=== PATIENT | male | born 1995 | race Caucasian/White ===

== ENCOUNTER 2024-01-02 11:04 | Emergency (ER) | payer SELFPAY ==
--- NOTE | ~2024-01-02 | XR_ITS ---
EXAMINATION: XR CHEST 2 VIEW CLINICAL INFORMATION: Chest pain, dyspnea COMPARISON: None TECHNIQUE: PA and lateral views of the chest obtained. FINDINGS: The lungs are clear. There are no pleural effusions. The cardiomediastinal silhouette is normal. XR/XR chest 2V IMPRESSION: No acute cardiopulmonary disease.
[2024-01-02 11:06] VITALS: BP 134/86; PULSE 128; RESP 22; TEMP 36.9; O2SAT 93; BMI 41.6
--- NOTE | 2024-01-02 11:09 | ED_ITS ---
HPI - General Adult General Chief complaint: Dyspnea Stated complaint: Difff breathing Time Seen by Provider: 01/02/24 11:28 Source: patient Mode of arrival: ambulatory Limitations: no limitations History of Present Illness HPI narrative: This is a 28-year-old man who presents for evaluation. Patient states that his co-worker who was sick with similar symptoms 2 days ago. Patient states that he has been feeling sick for the last 2 days. He reports chills, myalgias and sweats. He states no objective fevers. He reports cough. He reports associated headache, sore throat and difficulty breathing. He states no chest pain. He states no back pain. He states no abdominal pain, nausea or vomiting. He states no changes to bowel habits or urinary symptoms. He states that he is nonsmoker cigarettes or marijuana. Patient states that he does drink alcohol on a weekly basis. He reports that he had a DUI about a year ago has been slowly cutting back. He states mostly drinking beer. He states no history of alcohol withdrawal or DTs. He states recreational or illicit drug use. Related Data Previous Rx's ?Medication ?Instructions ?Recorded acetaminophen 325 mg capsule 650 mg (2 x 325 mg) PO Q6H PRN 01/02/24 (Tylenol) fever or pain #30 caps ibuprofen 600 mg tablet 600 mg PO Q6H PRN fever or pain 01/02/24 #20 tabs Allergies Allergy/AdvReac Type Severity Reaction Status Date / Time No Known Allergies Allergy Verified 01/02/24 11:11 Review of Systems 2 Review of Systems: ROS as per [facility] Social History Social History Advance Directives: No Advance Directives Information Provided: No Do you have a plan to hurt others: No Plan Physical Exam ED Vital Signs: Vital Signs - 24 hr 01/02/24 11:06 01/02/24 11:36 01/02/24 12:06 Temperature 98.4 F 100.3 F Pulse Rate 128 H 115 H 110 H Respiratory Rate 22 H 22 H 24 H Blood Pressure 134/86 137/79 Pulse Oximetry 93 92 Oxygen Delivery Method Room Air Room Air BMI result Body Mass Index 41.6 Gen: NAD, AOx3 HEENT: NCAT, EOMI, normal conjunctiva, uvula midline without edema, mild posterior oropharynx erythema without exudates CV: Tachycardic rate, regular rhythm Pulm: CTAB, no increased work of breathing GI: Soft, NTND, no rebound, guarding or rigidity Neuro: Grossly non focal Course Course Course Narrative: This is a rapid medical exam performed by Catalino Gross NP: Additional HPI, ROS, PE not included below will be deferred to primary provider. Patient is a 28-year-old male denies any pmhx presenting with 2 days of worsening dyspnea, chest tightness, cough yesterday, sore throat, body aches. PE: lungs CTA, patient diaphoretic, tachycardic and O2 92-93% on room air Plan: strep and viral swabs, labs, cxr Medications Administered Discontinued Medications Generic Name Dose Route Start Last Admin Trade Name Freq PRN Reason Stop Dose Admin Acetaminophen 650 mg 01/02/24 11:42 01/02/24 12:05 Acetaminophen 325 Mg Tablet PO 01/02/24 11:43 650 mg ONCE ONE Administration Albuterol Sulfate 2.5 mg/ 0 mg 01/02/24 12:02 01/02/24 12:06 Albuterol/Ipratropium 3 ml INHALE 01/02/24 12:03 1 dose ONCE ONE Administration Medical Decision Making Medical Decision Making [facility] Narrative: Differential diagnosis includes, but is not limited to upper respiratory tract infection, pharyngitis, pneumonia. Patient is afebrile and hemodynamically stable on room air albeit he is tachycardic and has a recorded temperature of a 100.3? F. I suspect his tachycardia secondary to rising body temperature and beta agonist. Patient is provided nebulized beta agonist and Tylenol therapy prior to my evaluation of the patient. Exam is benign and reassuring. I reviewed and interpreted labs, which are noncontributory. Of note, AST and ALT are mildly elevated. Patient endorses drinking alcohol a few times weekly. He reports prior history of heavier drinking. I suspect patient's alcohol use contributes to see these findings. I provided patient with alcohol cessation counseling indicates the importance of discontinuing alcohol use and also urged the patient to follow up with a primary care doctor/establish care with a primary care doctor and have provided patient with a referral to one. I reviewed and interpreted EKG, which is unremarkable for any acute findings. Chest x-ray is unremarkable for any acute findings. Patient has negative for COVID-19, influenza and RSV. On re-examination, patient is well-appearing and in no acute distress. ?Patient states symptoms have significantly improved. I suspect patient's symptoms are secondary to viral upper respiratory tract infection. ?There is no indication for further emergent evaluation in this otherwise well-appearing patient as above. ?Patient is provided written and verbal instructions, educational materials, prescription for ibuprofen and Tylenol, recommendations for outpatient follow-up, strict return precautions and teach back is performed. ?Patient states understanding and agreement with plan of care. ?Patient is discharged home in stable and improved condition. Admission/Observation Consideration of admission/observation: Escalation of care including admission/observation considered Lab Data MDM Lab Attestation statement: I reviewed the patient's lab results. 01/02/24 11:45 01/02/24 11:45 Labs: Lab Results 01/02/24 01/02/24 Range/Units 11:19 11:45 WBC 8.5 (4.8-10.8) X10*3/uL RBC 5.48 (4.60-5.80) X10*6/uL Hgb 16.4 (14.0-18.0) g/dl Hct 45.8 (42.0-52.0) % MCV 83.6 (80.0-98.0) fL MCH 29.9 (27.0-33.0) pg MCHC 35.8 (31.0-36.0) g/dl RDW 12.8 (11.0-16.0) % Plt Count 187 (160-400) X10*3/uL MPV 10.5 (9.4-12.4) fL Immature Gran % (Auto) 0.4 (0.0-0.4) % Neut % (Auto) 80.0 H (45-73) % Lymph % (Auto) 9.1 L (20-40) % [place] % (Auto) 8.5 (2-11) % Eos % (Auto) 1.2 (0-4) % Baso % (Auto) 0.8 (0-2) % Lymph # (Auto) 0.8 L (1.2-4.9) X10*3/uL [place] # (Auto) 0.7 (0.1-1.2) X10*3/uL Eos # (Auto) 0.1 (0.0-0.4) X10*3/uL Baso # (Auto) 0.1 (0.0-0.2) X10*3/uL Abs Immat Gran (auto) 0.03 (0.00-0.03) X10*3/uL Absolute Neuts (auto) 6.8 (2.0-8.3) x10*3/uL Absolute Nucleated RBC 0.000 (0.0-0.012) X10*3/uL Nucleated RBC % (auto) 0.0 (0.0-0.2) /100WBC PT 13.2 (11.1-13.3) SEC INR 1.1 (0.9-1.1) Sodium 135 (135-145) mmol/L Potassium 4.3 (3.3-5.1) mmol/L Chloride 102 (96-108) mmol/L Carbon Dioxide 23 (22-29) mmol/L Anion Gap 14 (12-20) BUN 9 (9-16) mg/dL Creatinine 0.74 (0.5-1.4) mg/dL Estim Creat Clear Calc 187.2 Estimated GFR > 60 Random Glucose 103 (60-115) mg/dL Calcium 9.3 (8.4-10.2) mg/dL Total Bilirubin 0.8 (0.0-1.0) mg/dL AST 54 H (5-37) U/L ALT 90 H (0-40) U/L Alkaline Phosphatase 61 (39-117) U/L Troponin I High Sens 3.8 (<3.5-35.0) ng/L Total Protein 7.7 (6.5-8.0) g/dL Albumin 4.2 (3.5-5.0) g/dL Influenza Type A (PCR) NEGATIVE (Negative) Influenza Type B (PCR) NEGATIVE (Negative) RSV RNA Qual (PCR) NEGATIVE (Negative) SARS-CoV-2 RNA (RT-PCR) NEGATIVE (Negative) S. pyogenes GrpA KONG Negative (Negative) Independent Interpretation I performed an independent interpretation of an: EKG and Plain X-Ray Interpretation: EKG demonstrates sinus tachycardia 113 BPM, FL 112, QRS 74, QTC 408, no STEMI (compared to previous EKG February 21, 2020 there are no diagnostic ischemic changes) Chest x-ray does not demonstrate any focal infiltrate, consolidation or pneumothorax Radiology Impression Discussion of test interpretation with radiology: I have reviewed the radiologist's reading. Radiologist Impression: XR/XR chest 2V IMPRESSION: No acute cardiopulmonary disease. Dictated By: Jaguar Bowden MD Signed By: <Electronically signed by Jaguar Bowden MD in OV> 01/02/24 3390 Discharge Plan Discharge Clinical Impression: Upper respiratory infection, acute Patient Disposition: Home, Self-Care Instructions: Upper Respiratory Infection (ED) Additional Instructions: You were seen and evaluated in the emergency room. Your blood work was normal. Your chest x-ray was normal and did not show evidence of pneumonia. You tested negative for COVID-19, influenza and RSV. Please continue to monitor for fever at home. You are given a prescription for ibuprofen and Tylenol. Please take as directed. Please be sure to always take ibuprofen with food and water each time. Please follow-up with a primary care doctor in the next 1-2 weeks. You are given a referral to establish care with one. Please return to the emergency room if you develop any worsening symptoms including, but not limited to chest pain or difficulty breathing. ? Prescriptions: New ibuprofen 600 mg tablet 600 mg PO Q6H PRN (Reason: fever or pain) Qty: 20 0RF acetaminophen [Tylenol] 325 mg capsule 650 mg PO Q6H PRN (Reason: fever or pain) Qty: 30 0RF Referrals: [facility] [Provider Group] Stand Alone Forms: Work/School Release Print Language: Latvian
--- NOTE | 2024-01-02 11:11 | ECG_ITS ---
Test Reason : diff breathing Blood Pressure : / mmHG Vent. Rate : 113 BPM Atrial Rate : 113 BPM P-R Int : 112 ms QRS Dur : 074 ms QT Int : 298 ms P-R-T Axes : 053 032 026 degrees QTc Int : 408 ms Sinus tachycardia Otherwise normal ECG When compared with ECG of 21-FEB-2020 23:47, No significant change was found Referred By: Nichole Gross Electronically Signed By:JANEEN TRINH
[2024-01-02 11:36] VITALS: BP 137/79; PULSE 115; RESP 22; TEMP 37.9; O2SAT 92
[2024-01-02 11:50] LABS: MANUAL DIFF FLAG NO
[2024-01-02 11:54] LABS: IDNOW Serial# 08D9AD1C; Strep A Nucleic Acid Negative (Negative)
[2024-01-02 11:54] LABS: Basophils Absolute Auto 0.1 X10*3/uL (0.0-0.2); Basophils Percent Auto 0.8 % (0-2); Eosinophils Absolute Auto 0.1 X10*3/uL (0.0-0.4); Eosinophils Percent Auto 1.2 % (0-4); Hematocrit 45.8 % (42.0-52.0); Hemoglobin 16.4 g/dl (14.0-18.0); Imm Gran Abs Auto 0.03 X10*3/uL (0.00-0.03); Imm Gran Pct Auto 0.4 % (0.0-0.4); Lymphocytes Absolute Auto 0.8 X10*3/uL (1.2-4.9); Lymphocytes Percent Auto 9.1 % (20-40); Mean Corpuscular HGB Conc 35.8 g/dl (31.0-36.0); Mean Corpuscular Hemoglobin 29.9 pg (27.0-33.0); Mean Corpuscular Volume 83.6 fL (80.0-98.0); Mean Platelet Volume 10.5 fL (9.4-12.4); Monocytes Absolute Auto 0.7 X10*3/uL (0.1-1.2); Monocytes Percent Auto 8.5 % (2-11); Neutrophils Absolute Auto 6.8 x10*3/uL (2.0-8.3); Platelet Count 187 X10*3/uL (160-400); Red Blood Count 5.48 X10*6/uL (4.60-5.80); Red Cell Distribution Width 12.8 % (11.0-16.0); White Blood Count 8.5 X10*3/uL (4.8-10.8)
[2024-01-02 12:02] LABS: INTERNATIONAL NORM RATIO 1.1 (0.9-1.1); Prothrombin Time 13.2 SEC (11.1-13.3)
[2024-01-02] MEDS: Acetaminophen 325 MG TABLET 650 MG PO (12:05)
[2024-01-02 12:06] VITALS: PULSE 110; RESP 24; O2SAT 97
[2024-01-02] MEDS: Albuterol Sulfate 2.5 MG, Albuterol/Iprat 2.5/0.5MG 3 ML 3 ML INHALE (12:06)
[2024-01-02 12:07] LABS: Influenza A PCR NEGATIVE (Negative); Influenza B PCR NEGATIVE (Negative); Resp Syncy Virus RNA Qual PCR NEGATIVE (Negative); SARS COV2 PCR INHOUSE NEGATIVE (Negative)
[2024-01-02 12:15] LABS: Alanine Aminotransferase 90 U/L (0-40); Albumin Level 4.2 g/dL (3.5-5.0); Alkaline Phosphatase 61 U/L (39-117); Anion Gap 14 (12-20); Aspartate Amino Transferase 54 U/L (5-37); Bilirubin Total 0.8 mg/dL (0.0-1.0); Blood Urea Nitrogen 9 mg/dL (9-16); Calcium 9.3 mg/dL (8.4-10.2); Carbon Dioxide 23 mmol/L (22-29); Chloride 102 mmol/L (96-108); Creatinine Clr Calc Pharmacy 187.2; Estimated Glomerular Filt Rate > 60; Glucose Random 103 mg/dL (60-115); Potassium 4.3 mmol/L (3.3-5.1); Sodium 135 mmol/L (135-145); Total Protein 7.7 g/dL (6.5-8.0)
[2024-01-02 12:21] LABS: Troponin-I High Sensitivity 3.8 ng/L (<3.5-35.0)
[2024-01-02 13:17] VITALS: BP 137/79; PULSE 94; RESP 18; TEMP 36.8; O2SAT 97
== END 2024-01-02 13:19 | disposition home or self-care (01) ==
PROVIDERS: Registered Nurse Emergency; Emergency Provider Emergency Medicine
DX: J06.9 Acute upper respiratory infection, unspecified (principal); M79.10 Myalgia, unspecified site; R68.83 Chills (without fever); Z03.818 Encounter for observation for suspected exposure to other biological agents ruled out; R51.9 Headache, unspecified; R05.9 Cough, unspecified; J02.9 Acute pharyngitis, unspecified
CPT/HCPCS: 0241U; 36415; 71046; 80053; 84484; 85025; 85610; 87651; 93005; 94640; 99284; 99285

== ENCOUNTER → 2024-01-02 11:11 | Outpatient (BNV) | payer SELFPAY | PROVIDERS: Emergency Provider Emergency Medicine; Visit Provider Internal Medicine | DX: R06.00 Dyspnea, unspecified (principal); R00.0 Tachycardia, unspecified | CPT/HCPCS: 93010 ==

== ENCOUNTER 2024-02-23 07:47 | Inpatient (IN) | payer SELFPAY ==
[2024-02-23] VITALS (9 sets, daily range): BP systolic 134–163; BP diastolic 81–96; PULSE 78–90; RESP 13–20; TEMP 36.6–37.1; O2SAT 93–98; BMI 39.9
--- NOTE | ~2024-02-23 | CT_ITS ---
EXAMINATION: CT ABDOMEN AND PELVIS WITH CONTRAST CLINICAL INFORMATION: Abdominal pain with nausea and vomiting. Elevated lipase COMPARISON: None available. TECHNIQUE: Multidetector volumetric images were obtained from the superior aspect of the liver through the pubic symphysis following administration 85 mL of Omnipaque 350 intravenous contrast. Sagittal and coronal reformatted images were obtained on the technologist's workstation. Oral contrast: No This CT examination was performed using dose optimization techniques as appropriate, variously including the following: *Automated exposure control *Adjustment of mA and/or kV according to patient size (this includes techniques or standardized protocols for targeted exams where dose is matched to indication/reason for exam; i.e. extremities or head) *Use of iterative reconstruction technique DLP: 987 mGy-cm FINDINGS: LUNG BASES: The visualized lung bases are unremarkable. LIVER, GALLBLADDER, AND BILIARY TREE: Liver is decreased in density consistent with hepatic steatosis. The gallbladder is unremarkable with no evidence of radiopaque gallstones, gallbladder wall thickening, or obvious pericholecystic inflammatory changes. PANCREAS: Minimal edema and inflammatory stranding seen around the tail of the pancreas consistent with acute pancreatitis SPLEEN: Unremarkable. ADRENAL GLANDS: Unremarkable. KIDNEYS AND URETERS: The kidneys are normal in size, shape, and attenuation. No hydronephrosis, hydroureter, or calculi seen. No perinephric stranding. BLADDER: Unremarkable. GASTROINTESTINAL TRACT: The small and large bowel are unremarkable. The appendix is unremarkable. ABDOMINAL WALL: No significant hernia is appreciated. LYMPH NODES: Normal. VASCULAR: Unremarkable. PELVIC VISCERA: Unremarkable. OSSEOUS STRUCTURES: Unremarkable. CT/CT abdomen pelvis w IV con IMPRESSION: 1. Mild edema and inflammatory stranding around the tail of the pancreas consistent with acute pancreatitis. 2. Hepatic steatosis. Electronically signed by: Dl Lawrence MD 02/23/2024 12:23 PM EDT
[2024-02-23 08:18] LABS: MANUAL DIFF FLAG NO
[2024-02-23 08:19] LABS: Basophils Absolute Auto 0.1 X10*3/uL (0.0-0.2); Basophils Percent Auto 1.2 % (0-2); Eosinophils Absolute Auto 0.2 X10*3/uL (0.0-0.4); Hemoglobin 16.9 g/dl (14.0-18.0); Imm Gran Abs Auto 0.03 X10*3/uL (0.00-0.03); Imm Gran Pct Auto 0.4 % (0.0-0.4); Lymphocytes Absolute Auto 1.6 X10*3/uL (1.2-4.9); Lymphocytes Percent Auto 19.6 % (20-40); Mean Corpuscular HGB Conc 34.5 g/dl (31.0-36.0); Mean Corpuscular Hemoglobin 29.7 pg (27.0-33.0); Mean Corpuscular Volume 86.1 fL (80.0-98.0); Mean Platelet Volume 10.5 fL (9.4-12.4); Monocytes Absolute Auto 0.6 X10*3/uL (0.1-1.2); Monocytes Percent Auto 7.8 % (2-11); Neutrophils Absolute Auto 5.5 x10*3/uL (2.0-8.3); Platelet Count 210 X10*3/uL (160-400); Red Blood Count 5.69 X10*6/uL (4.60-5.80); White Blood Count 8.1 X10*3/uL (4.8-10.8)
--- NOTE | 2024-02-23 08:34 | ED.GENADULT ---
HPI - General Adult General Chief complaint: General Medical Stated complaint: vomiting lightheaded Time Seen by Provider: 02/23/24 08:19 Source: patient Mode of arrival: ambulatory Limitations: no limitations History of Present Illness ED Provider: Omar ZIMMER HPI narrative: This is a 29-year-old male history of alcoholism presenting to the emergency department with nausea, vomiting, abdominal pain particularly in the upper side on the left this has been going on for the past week or so, has not been tolerating p.o.. Reports pain is intermittent and sharp in nature. Each time he tries to eat hands up throwing up. No sick contacts. Denies fevers, chills, chest pain, shortness of breath, headache, vision changes, dizziness and weakness. Patient does report he has been cutting down on drinking he typically drinks an 18 pack a day beer however his last drink was 2 weeks ago since he has not been feeling well. Related Data Previous Rx's ?Medication ?Instructions ?Recorded acetaminophen 325 mg capsule 650 mg (2 x 325 mg) PO Q6H PRN 01/02/24 (Tylenol) fever or pain #30 caps ibuprofen 600 mg tablet 600 mg PO Q6H PRN fever or pain 01/02/24 #20 tabs Allergies Allergy/AdvReac Type Severity Reaction Status Date / Time No Known Allergies Allergy Verified 02/23/24 07:59 Review of Systems Review of Systems: Yes all other systems are reviewed and are negative [facility] Past Medical History Attestation statement: The following information was validated with the patient. Source: old records reviewed and nursing notes reviewed Social History Social History Alcohol intake: current Alcohol intake frequency: 3 or more drinks per day Alcohol type: beer Smoked in Last 30 Days: No Use of substances other than those prescribed or required for medical reasons: No Advance Directives: No Advance Directives Information Provided: Yes Do you have a plan to hurt others: No Plan Physical Exam ED Vital Signs: Vital Signs - 24 hr 02/23/24 07:55 02/23/24 08:00 02/23/24 08:54 Temperature 98.3 F 97.9 F Pulse Rate 89 84 82 Respiratory Rate 18 18 Blood Pressure 134/89 148/83 H 153/90 H Pulse Oximetry 96 93 Oxygen Delivery Method Room Air Room Air 08/23/24 08:55 02/23/24 08:57 02/23/24 10:13 Temperature 98.0 F Pulse Rate 90 89 78 Respiratory Rate 18 Blood Pressure 159/83 H 151/81 H 163/96 H Pulse Oximetry 98 Oxygen Delivery Method Room Air BMI result Body Mass Index 39.9 vss Appearance: Alert.? Oriented X3.? No acute distress.? Head: Normocephalic, atraumatic, no step-offs or deformities Eyes: Pupils equal, round and reactive to light.? ENT: Pharynx normal.? Neck: Normal inspection.? Neck supple.? CVS: Normal heart rate and rhythm.? Pulses normal.? Respiratory: No respiratory distress.? Breath sounds normal.? Abdomen: Soft and + TTP to LUQ .? Skin: Skin warm and dry.? Normal skin color.? Normal skin turgor.? Extremities: No lower extremity edema.? No calf ttp. 5/5 strength to bilateral upper and lower extremities Neuro: Oriented X 3.? No motor deficit.? No sensory deficit. CN 2-12 intact Course Reevaluation(s) Reevaluation #1: CBC unremarkable. Chemistry no acute findings eating intervention. Transaminases chronically elevated likely secondary to alcohol abuse. Total CPK 315 will hydrate, lipase 298, again hydration indicated. Will also give Toradol for pain control. CT abdomen and pelvis pending. Ethanol level negative. Flu, COVID, RSV negative. Time: 09:55 Reevaluation #2: Patient's CT with mild edema and inflammatory stranding around the tail of the pancreas consistent with acute pancreatitis hepatic steatosis noted. Time: 12:45 Medications Administered Discontinued Medications Generic Name Dose Route Start Last Admin Trade Name Freq PRN Reason Stop Dose Admin Iohexol 100 ml 02/23/24 10:34 02/23/24 10:35 Iohexol 350 Mg/Ml 100 Ml Infus..Btl IV 02/23/24 10:35 85 ml ONCE ONE Administration Medical Decision Making Medical Decision Making [facility] Narrative: 0922 29-year-old male presents to the emergency department with nausea vomiting and abdominal pain for the past week. Was recently COVID positive however has tested negative ever since. Physical exam left upper quadrant tenderness on palpation Had history and physical exam concerning for pancreatitis versus viral illness versus gastroenteritis. Unlikely acute abdomen obstruction, diverticulitis, pancreatitis, cholecystitis. Plan labs, imaging, urine. Differential Diagnosis Differential Diagnoses: The differential diagnosis associated with the presentation includes Had history and physical exam concerning for pancreatitis versus viral illness versus gastroenteritis. Unlikely acute abdomen obstruction, diverticulitis, pancreatitis, cholecystitis. Admission/Observation Consideration of admission/observation: Escalation of care including admission/observation considered possible admission Consult Healthcare Provider Management of the patient was discussed with: Hospitalist Lab Data MDM Lab Attestation statement: I reviewed the patient's lab results. 02/23/24 08:10 02/23/24 08:10 Labs: Lab Results 02/23/24 Range/Units 08:10 WBC 8.1 (4.8-10.8) X10*3/uL RBC 5.69 (4.60-5.80) X10*6/uL Hgb 16.9 (14.0-18.0) g/dl Hct 49.0 (42.0-52.0) % MCV 86.1 (80.0-98.0) fL MCH 29.7 (27.0-33.0) pg MCHC 34.5 (31.0-36.0) g/dl RDW 13.0 (11.0-16.0) % Plt Count 210 (160-400) X10*3/uL MPV 10.5 (9.4-12.4) fL Immature Gran % (Auto) 0.4 (0.0-0.4) % Neut % (Auto) 68.0 (45-73) % Lymph % (Auto) 19.6 L (20-40) % [place] % (Auto) 7.8 (2-11) % Eos % (Auto) 3.0 (0-4) % Baso % (Auto) 1.2 (0-2) % Lymph # (Auto) 1.6 (1.2-4.9) X10*3/uL [place] # (Auto) 0.6 (0.1-1.2) X10*3/uL Eos # (Auto) 0.2 (0.0-0.4) X10*3/uL Baso # (Auto) 0.1 (0.0-0.2) X10*3/uL Abs Immat Gran (auto) 0.03 (0.00-0.03) X10*3/uL Absolute Neuts (auto) 5.5 (2.0-8.3) x10*3/uL Absolute Nucleated RBC 0.000 (0.0-0.012) X10*3/uL Nucleated RBC % (auto) 0.0 (0.0-0.2) /100WBC Sodium 140 (135-145) mmol/L Potassium 3.9 (3.3-5.1) mmol/L Chloride 105 (96-108) mmol/L Carbon Dioxide 28 (22-29) mmol/L Anion Gap 11 L (12-20) BUN 10 (9-16) mg/dL Creatinine 0.76 (0.5-1.4) mg/dL Estim Creat Clear Calc 182.0 Estimated GFR > 60 Random Glucose 136 H (60-115) mg/dL Calcium 8.9 (8.4-10.2) mg/dL Total Bilirubin 0.5 (0.0-1.0) mg/dL AST 46 H (5-37) U/L ALT 61 H (0-40) U/L Alkaline Phosphatase 65 (39-117) U/L Total Creatine Kinase 315 H (38-174) U/L Total Protein 7.0 (6.5-8.0) g/dL Albumin 3.8 (3.5-5.0) g/dL Lipase 298 H (8-78) U/L Ethyl Alcohol < 10 mg/dL Influenza Type A (PCR) NEGATIVE (Negative) Influenza Type B (PCR) NEGATIVE (Negative) RSV RNA Qual (PCR) NEGATIVE (Negative) SARS-CoV-2 RNA (RT-PCR) NEGATIVE (Negative) Independent Interpretation I performed an independent interpretation of an: EKG (Vent. Rate : 113 BPM Atrial Rate : 113 BPM P-R Int : 112 ms QRS Dur : 074 ms QT Int : 298 ms P-R-T Axes : 053 032 026 degrees QTc Int : 408 ms Sinus tachycardia Otherwise normal ECG When compared with ECG of 21-FEB-2020 23:47, No significant change was found) and Plain X-Ray ( XR/XR chest 2V IMPRESSION: No acute cardiopulmonary disease.) Radiology Impression Discussion of test interpretation with radiology: I have reviewed the radiologist's reading. External Record Review External record reviewed: Office record, Outpatient record and Prior outpatient labs Chronic Conditions Patient?s care impacted by: Other (alcohol use disorder ) Critical Care Time Critical Care Time Critical Care Time: Yes Total Critical Care Time: 35 Attestation: I attest to this time spent taking care of the patient, obtaining history, physical, reviewing labs, imaging, speaking to hospitalist, IV hydration Discharge Plan Discharge Clinical Impression: Acute pancreatitis, Nausea & vomiting, Alcohol use disorder Patient Disposition: Still a Patient Prescriptions: No Action ibuprofen 600 mg tablet 600 mg PO Q6H PRN (Reason: fever or pain) Qty: 20 0RF acetaminophen [Tylenol] 325 mg capsule 650 mg PO Q6H PRN (Reason: fever or pain) Qty: 30 0RF Print Language: Indian
[2024-02-23 08:38] LABS: Alanine Aminotransferase 61 U/L (0-40); Albumin Level 3.8 g/dL (3.5-5.0); Alkaline Phosphatase 65 U/L (39-117); Anion Gap 11 (12-20); Aspartate Amino Transferase 46 U/L (5-37); Bilirubin Total 0.5 mg/dL (0.0-1.0); Blood Urea Nitrogen 10 mg/dL (9-16); Calcium 8.9 mg/dL (8.4-10.2); Carbon Dioxide 28 mmol/L (22-29); Chloride 105 mmol/L (96-108); Estimated Glomerular Filt Rate > 60; Glucose Random 136 mg/dL (60-115); Potassium 3.9 mmol/L (3.3-5.1); Sodium 140 mmol/L (135-145)
[2024-02-23 09:02] LABS: Influenza A PCR NEGATIVE (Negative); Influenza B PCR NEGATIVE (Negative); Resp Syncy Virus RNA Qual PCR NEGATIVE (Negative); SARS COV2 PCR INHOUSE NEGATIVE (Negative)
[2024-02-23 09:11] LABS: Lipase 298 U/L (8-78)
[2024-02-23 09:50] LABS: Ethanol < 10 mg/dL
[2024-02-23] MEDS: iohexoL 350 MG/ML 100 ML INFUS..BTL IV (10:35)
--- NOTE | 2024-02-23 11:28 | PC.NURSE ---
hasn't had a drink for 1 week
--- NOTE | 2024-02-23 13:27 | PHA.MEDREC ---
Addendum entered by Koby Dave RPh 02/23/24 14:01: Med rec reviewed by Leoncio. Original Note: Pharmacy Consult ? Medication Reconciliation Pharmacy has completed the medication reconciliation.
--- NOTE | 2024-02-23 13:44 | P.HPHOSP_ITS ---
History of Present Illness Date of Service: 02/23/24 Attending physician on admission: [facility] Chief Complaint: abdominal pain This is a 29-year-old male who presents to the emergency department with abdominal pain. He reports 3-4 days of upper abdominal pain. The pain has been associated with nausea, vomiting, diarrhea. His abdominal pain is not changed by food intake but he has had decreased p.o. intake due to decreased appetite. He denies sick contacts, he denies travel. He was recently diagnosed with COVID-19 over 2 weeks ago but no longer has respiratory symptoms. He denies any fever or chills. In the emergency department his lab work was significant for mild transaminitis as well as a lipase level 290. A CT scan of the abdomen was obtained and showed inflammatory changes around the pancreas consistent with pancreatitis. He does have a history of alcohol use. He states that he used to drink on a daily basis but over the past several months he has been drinking every other day or every several days. His last drink of alcohol was 3 days ago. He denies any history of alcohol withdrawal or seizures. He is not routinely seen by any medical provider and has no medical diagnoses. Review of Systems 2 Review of Systems: Yes all other systems are reviewed and are negative Constitutional: Constitutional: Denies chills and Denies fever(s) Cardiovascular: Cardiovascular: Denies chest pain and Denies palpitations Respiratory: Respiratory: Denies cough Gastrointestinal: Gastrointestinal: Reports abdominal pain, Reports nausea and Reports vomiting Endocrine: Endocrine: Denies palpitations PMFSH Pertinent family history: Multiple family members on his father's side with elevated cholesterol and diabetes Social History Alcohol intake: current Alcohol intake frequency: 3 or more drinks per day Alcohol type: beer Smoked in Last 30 Days: No Use of substances other than those prescribed or required for medical reasons: No Advance Directives: No Advance Directives Information Provided: Yes Do you have a plan to hurt others: No Plan Meds Allergies Allergy/AdvReac Type Severity Reaction Status Date / Time No Known Allergies Allergy Verified 02/23/24 07:59 Active Medications: Current Medications Acetaminophen (Acetaminophen 325 Mg Tablet) 650 mg PO Q6H PRN PRN Reason: Pain, Mild (Pain Scale 1-3), fever or headache Calcium Carbonate (Calcium Carbonate 750 Mg Tab.Chew) 750 mg PO Q4H PRN PRN Reason: Heartburn Enoxaparin Sodium (Enoxaparin Sodium 40 Mg/0.4 Ml Syringe) 40 mg SUBCUT Q24H RUBY Lactated Ringer's (Lr) 1,000 mls @ 125 mls/hr IVCONT .Q8H RUBY Magnesium Hydroxide (Milk Of Magnesia 30 Ml Oral.Susp) 30 ml PO DAILY PRN PRN Reason: Constipation Melatonin (Melatonin 3 Mg Tablet) 6 mg PO BEDTIME PRN PRN Reason: Insomnia Sodium Chloride (0.9 % Sodium Chloride Flush 3 Ml Syringe) 3 ml IVFLUSH QSHIFT RUBY Home Medications ?Medication ?Instructions ?Recorded ?Confirmed ?Last Taken ?Type acetaminophen 500 mg tablet 500 mg PO DAILY PRN Pain 02/23/24 02/23/24 Unknown History (Tylenol Extra Strength) Physical Exam 2 Vital Signs and Narrative: Vital Signs: Last Vital Signs Temp 98.0 F 02/23/24 10:13 Pulse 78 02/23/24 10:13 Resp 18 02/23/24 10:13 BP 163/96 H 02/23/24 10:13 Pulse Ox 98 02/23/24 10:13 O2 Del Method Room Air 02/23/24 10:13 BMI result Body Mass Index 39.9 Const: General: no acute distress, alert and awake Nutritional Appearance: obese Orientation/consciousness: patient oriented x3 Resp: Effort & Inspection: normal respiratory effort, able to speak in complete sentences, no respiratory distress and no use of accessory muscles A uscultation: clear to auscultation bilaterally Cardio: Rate: regular rate GI: Other: Tenderness in epigastric region, right upper quadrant, abdomen is soft, nondistended, no guarding, no rebound Neuro: General: patient oriented x3, moves all extremities and CN's II-XI intact bilaterally Extrem: General: Yes no pedal edema Results Labs 02/23/24 08:10 02/23/24 08:10 Labs: Laboratory Results - last 24 hr 02/23/24 08:10 MCV 86.1 MCH 29.7 MCHC 34.5 RDW 13.0 Plt Count 210 MPV 10.5 Immature Gran % (Auto) 0.4 Neut % (Auto) 68.0 Lymph % (Auto) 19.6 L [place] % (Auto) 7.8 Eos % (Auto) 3.0 Baso % (Auto) 1.2 Lymph # (Auto) 1.6 [place] # (Auto) 0.6 Eos # (Auto) 0.2 Baso # (Auto) 0.1 Abs Immat Gran (auto) 0.03 Absolute Neuts (auto) 5.5 Absolute Nucleated RBC 0.000 Nucleated RBC % (auto) 0.0 Anion Gap 11 L Estim Creat Clear Calc 182.0 Estimated GFR > 60 Random Glucose 136 H Calcium 8.9 Total Bilirubin 0.5 AST 46 H ALT 61 H Alkaline Phosphatase 65 Total Creatine Kinase 315 H Total Protein 7.0 Albumin 3.8 Lipase 298 H Ethyl Alcohol < 10 Influenza Type A (PCR) NEGATIVE Influenza Type B (PCR) NEGATIVE RSV RNA Qual (PCR) NEGATIVE SARS-CoV-2 RNA (RT-PCR) NEGATIVE Imaging Radiologist's Impressions: Impressions Abdomen/Pelvis CT 02/23/24 10:26 IMPRESSION: 1. Mild edema and inflammatory stranding around the tail of the pancreas consistent with acute pancreatitis. 2. Hepatic steatosis. Electronically signed by: Dl Lawrence MD 02/23/2024 12:23 PM EDT RP Assessment and Plan (1) Acute pancreatitis: Status: Acute Plan This is a 29 year old male with no known past medical history who presents to the emergency department with 3 day history of abdominal pain, nausea, vomiting found to have acute pancreatitis Acute pancreatitis possibly due to alcohol use, no alcohol use for the past 3 days No gallstones seen on imaging, consider ultrasound Check lipid profile to evaluate triglyceride level bowel rest, IVF, IV analgesia advance diet as tolerated Morbid obesity BMI 39.9 Weight loss encouraged transaminitis Liver consistent with hepatic steatosis on CT scan Alcohol use disorder Patient denies the use of alcohol on a daily basis He drinks every other day or every few days. No history of alcohol withdrawal will monitor CIWA scale and treat if patient becomes symptomatic Mild rhabdomyolysis CPK 315 renal function stable Trend Elevated blood pressure No history of hypertension Possibly due to pain will monitor trended if continues to be elevated we will consider starting antihypertensive medication DVT prophylaxis Lovenox Patient will likely require 2 midnight stay in the hospital for management of acute pancreatitis Quality Stroke Does the patient have a stroke diagnosis?: No VTE Prior VTE?: No VTE Risk Level:: Medical - moderate - high VTE Device Contraindication: N/A - Device Ordered VTE Drug Contraindication: N/A - Med Ordered
[2024-02-23 14:15] LABS: Cholesterol 230 mg/dL (<200); HDL Cholesterol 41 mg/dL (>40); LDL Cholesterol Calculated 122 mg/dL (<100); Triglycerides 339 mg/dL (<150)
[2024-02-23 14:52] LABS: Lipase 150 U/L (8-78)
[2024-02-23] MEDS: Lactated Ringers 1,000 ML 125 ML IVCONT ×2 (15:14→22:06)
[2024-02-23] MEDS: 0.9 % Sodium Chloride Flush 3 ML SYRINGE IVFLUSH (15:15)
[2024-02-23] MEDS: Enoxaparin Sodium 40 MG/0.4 ML SYRINGE SUBCUT (15:15)
--- NOTE | 2024-02-23 19:42 | MHC.EDTECH ---
This tech took over care of patient at 1900,hourly rounds and vitals completed,patient is resting quietly,call gonzalez in reach
[2024-02-24 00:28] VITALS: BP 149/76; PULSE 78; RESP 16; TEMP 36.6; O2SAT 93
[2024-02-24 06:05] VITALS: BP 166/94; PULSE 84; RESP 16; TEMP 36.8; O2SAT 95
[2024-02-24] MEDS: Lactated Ringers 1,000 ML 125 ML IVCONT (06:22)
--- NOTE | 2024-02-24 06:24 | PC.NURSE ---
Patient found to have orders for med-tele and not on heart monitor. Patient is on overflow and not wearing monitor. He states they removed it when they moved him out of the ED. ED charge nurse Roxanne contacted for monitor. She stated that med-tele patients should not be on the overflow unit. She contacted and they are to transfer him to main ED for monitoring.
[2024-02-24 08:00] VITALS: BP 182/77; PULSE 84; RESP 18; TEMP 36.6; O2SAT 96
[2024-02-24 09:07] LABS: Estimated Average Glucose 111 mg/dL; Hemoglobin A1c % 5.5 % (<6.0)
[2024-02-24 09:17] LABS: Anion Gap 14 (12-20); Blood Urea Nitrogen 10 mg/dL (9-16); Calcium 8.9 mg/dL (8.4-10.2); Carbon Dioxide 26 mmol/L (22-29); Chloride 104 mmol/L (96-108); Estimated Glomerular Filt Rate > 60; Glucose Random 113 mg/dL (60-115); Potassium 3.6 mmol/L (3.3-5.1); Sodium 140 mmol/L (135-145)
[2024-02-24 12:00] VITALS: BP 187/88; PULSE 68; RESP 18; TEMP 37.1; O2SAT 96
--- NOTE | 2024-02-24 13:22 | P.PNIM_ITS ---
Subjective Subjective Date of Service: 02/24/24 Interval History: Seen and examined this morning Follow-up for acute pancreatitis abdominal pain improving no nausea or vomiting Review of Systems Review of Systems: Yes all other systems are reviewed and are negative Constitutional Constitutional: Denies chills and Denies fever(s) Cardiovascular Cardiovascular: Denies chest pain, Denies palpitations and Denies dyspnea Respiratory Respiratory: Denies cough and Denies dyspnea Gastrointestinal Gastrointestinal: Denies nausea and Denies vomiting Endocrine Endocrine: Denies palpitations Physical Exam 2 Vital Signs: Vital Signs: Last Vital Signs Temp 98.7 F 02/24/24 12:00 Pulse 68 02/24/24 12:00 Resp 18 02/24/24 12:00 BP 187/88 H 02/24/24 12:00 Pulse Ox 96 02/24/24 12:00 O2 Del Method Room Air 02/24/24 12:00 BMI result Body Mass Index 39.9 Const: General: no acute distress, alert and awake Nutritional Appearance: obese Orientation/consciousness: patient oriented x3 Resp: Effort & Inspection: normal respiratory effort, able to speak in complete sentences, no respiratory distress and no use of accessory muscles A uscultation: clear to auscultation bilaterally Cardio: Rate: regular rate GI: Other: no significant TTP, soft, no guarding Neuro: General: patient oriented x3, moves all extremities and CN's II-XI intact bilaterally Extrem: General: Yes no pedal edema Objective Data Active Medications Acetaminophen (Acetaminophen 325 Mg Tablet) 650 mg PO Q6H PRN PRN Reason: Pain, Mild (Pain Scale 1-3), fever or headache Calcium Carbonate (Calcium Carbonate 750 Mg Tab.Chew) 750 mg PO Q4H PRN PRN Reason: Heartburn Enoxaparin Sodium (Enoxaparin Sodium 40 Mg/0.4 Ml Syringe) 40 mg SUBCUT Q24H [facility] Last Admin: 02/23/24 15:15 Dose: 40 mg Documented By: FELY Magnesium Hydroxide (Milk Of Magnesia 30 Ml Oral.Susp) 30 ml PO DAILY PRN PRN Reason: Constipation Melatonin (Melatonin 3 Mg Tablet) 6 mg PO BEDTIME PRN PRN Reason: Insomnia Morphine Sulfate (Morphine Sulfate 2 Mg/Ml Cartridge) 2 mg IVPUSH Q4H PRN; Protocol PRN Reason: Pain, Severe (Pain Scale 7-10) Sodium Chloride (0.9 % Sodium Chloride Flush 3 Ml Syringe) 3 ml IVFLUSH QSHIFT [facility] Last Admin: 02/24/24 07:05 Dose: Not Given Documented By: MARIUM Non-Admin Reason: IV Running Labs 02/23/24 08:10 02/24/24 08:24 Labs: Laboratory Results - last 24 hr 02/23/24 02/23/24 02/24/24 08:10 14:27 08:24 Anion Gap 14 Estim Creat Clear Calc 182.0 Estimated GFR > 60 Random Glucose 113 Estimat Average Glucose 111 Hemoglobin A1c % 5.5 Calcium 8.9 Total Creatine Kinase 275 H Triglycerides 339 H Cholesterol 230 H LDL Cholesterol, Calc 122 H HDL Cholesterol 41 Lipase 150 H Assessment and Plan (1) Acute pancreatitis: Status: Acute Plan This is a 29 year old male with no known past medical history who presents to the emergency department with 3 day history of abdominal pain, nausea, vomiting found to have acute pancreatitis Acute pancreatitis possibly due to alcohol use, no alcohol use for the past 3 days No gallstones seen on imaging, consider ultrasound TG 339 pain improving, will advance to clear liquids, stop IVF, continue IV analgesia Morbid obesity BMI 39.9 Weight loss encouraged transaminitis likely due to hepatic steatosis on CT scan Alcohol use disorder Patient denies the use of alcohol on a daily basis He drinks every other day or every few days. No history of alcohol withdrawal will monitor CIWA scale and treat if patient becomes symptomatic Mild rhabdomyolysis CPK 315, trending down with IVF renal function stable Elevated blood pressure No history of hypertension will start norvasc, titrate as needed DVT prophylaxis Lovenox Patient will likely require 2 midnight stay in the hospital for management of acute pancreatitis Quality Stroke Does the patient have a stroke diagnosis?: No VTE Prior VTE?: No VTE Risk Level:: Medical - moderate - high VTE Device Contraindication: N/A - Device Ordered VTE Drug Contraindication: N/A - Med Ordered
[2024-02-24] MEDS: Enoxaparin Sodium 40 MG/0.4 ML SYRINGE SUBCUT (14:14)
[2024-02-24] MEDS: amLODIPine Besylate 5 MG TABLET PO (14:14)
--- NOTE | 2024-02-24 14:51 | PC.NURSE ---
Alert and oriented, denies pain or discomfort. tolerated clear liquid diet well for lunch. Reports feeling much better. Medicated per mar, LR discontinued per order
[2024-02-24 16:00] VITALS: BP 162/80; PULSE 87; RESP 20; TEMP 36.9; O2SAT 97
[2024-02-24] MEDS: 0.9 % Sodium Chloride Flush 3 ML SYRINGE IVFLUSH (17:20)
[2024-02-25 00:05] VITALS: BP 147/73; PULSE 79; RESP 17; TEMP 36.8; O2SAT 97
[2024-02-25] MEDS: 0.9 % Sodium Chloride Flush 3 ML SYRINGE IVFLUSH (00:30)
--- NOTE | 2024-02-25 02:37 | PC.NURSE ---
Assumed care , patient A&O , denies pain. Vital signs stable. Patient stating he hopes to go home today.
[2024-02-25 07:30] VITALS: BP 152/94; PULSE 96; RESP 17; TEMP 36.5; O2SAT 98
[2024-02-25] MEDS: amLODIPine Besylate 5 MG TABLET PO (08:39)
--- NOTE | 2024-02-25 09:00 | P.DS_ITS ---
DS: Providers Provider Date of Service: 02/25/24 Date of admission: 02/23/24 13:41 Date of discharge: 02/25/24 Primary care physician: None Physician Attending physician on discharge: Porter Nassar Discharging clinician: Nai Matos DS: Diagnosis Discharge Diagnosis (1) Acute pancreatitis: Status: Acute DS: Summary Hospital Course Hospital Course: From H&P on the day of admission This is a 29-year-old male who presents to the emergency department with abdominal pain. He reports 3-4 days of upper abdominal pain. The pain has been associated with nausea, vomiting, diarrhea. His abdominal pain is not changed by food intake but he has had decreased p.o. intake due to decreased appetite. He denies sick contacts, he denies travel. He was recently diagnosed with COVID-19 over 2 weeks ago but no longer has respiratory symptoms. He denies any fever or chills. In the emergency department his lab work was significant for mild transaminitis as well as a lipase level 290. A CT scan of the abdomen was obtained and showed inflammatory changes around the pancreas consistent with pancreatitis. He does have a history of alcohol use. He states that he used to drink on a daily basis but over the past several months he has been drinking every other day or every several days. His last drink of alcohol was 3 days ago. He denies any history of alcohol withdrawal or seizures. He is not routinely seen by any medical provider and has no medical diagnoses. Acute pancreatitis. Likely due to underlying alcohol use. No gallstones seen on imaging. Triglycerides 339. Abdominal pain has resolved and patient tolerated clear liquids, therefore diet was advanced to full diet. Patient was able to tolerate a full diet without any abdominal pain. Nausea and vomiting has resolved. He is encouraged to stop using alcohol. He had mild rhabdomyolysis with a CPK of 315 on arrival, trended down to the 200s with IV fluid. Renal function has remained stable. He was noted to have elevated blood pressure levels, has no history of hypertension. Was started on Norvasc which may need further titration. Unfortunately the patient does not have health insurance or a PCP. He is encouraged to enroll with [facility] and obtain a PCP for close outpatient monitoring. Triglyceride levels were elevated as above, lifestyle modification factors including alcohol cessation, exercise, Mediterranean diet and weight loss were discussed. Will likely need pharmacological treatment for elevated lipids in the future. Time Attestation Discharge Coordination Time (in mins): 35 Quality: Safe Use of Opioids Does Pt have an Active Cancer Diagnosis on the Problem List?: No Quality: Stroke Does the patient have a stroke diagnosis?: No Physical Exam Vital Signs: Vital Signs: Last Vital Signs Temp 97.7 F 02/25/24 07:30 Pulse 96 02/25/24 07:30 Resp 17 02/25/24 07:30 BP 152/94 H 02/25/24 07:30 Pulse Ox 98 02/25/24 07:30 O2 Del Method Room Air 02/25/24 07:30 BMI result Body Mass Index 39.9 Const: General: no acute distress, alert and awake Nutritional Appearance: obese Orientation/consciousness: patient oriented x3 Resp: Effort & Inspection: normal respiratory effort, able to speak in complete sentences, no respiratory distress and no use of accessory muscles Auscultation: clear to auscultation bilaterally Cardio: Rate: regular rate GI: Other: no significant TTP, soft, no guarding Neuro: General: patient oriented x3, moves all extremities and CN's II-XI intact bilaterally Extrem: General: Yes no pedal edema DS: Data Data Completed and Pending Labs on day of discharge: Laboratory Results - last 24 hr 02/24/24 08:24 Sodium 140 Potassium 3.6 Chloride 104 Carbon Dioxide 26 Anion Gap 14 BUN 10 Creatinine 0.76 Estim Creat Clear Calc 182.0 Estimated GFR > 60 Random Glucose 113 Estimat Average Glucose 111 Hemoglobin A1c % 5.5 Calcium 8.9 Discharge Plan Discharge Anticipated Discharge Date/Time: 02/25/24 10:09 Patient Disposition: Home, Self-Care Discharge Diagnosis: Acute pancreatitis Referrals: Physician,None [Primary Care Provider] - 1 Week Discharge Medications: New amlodipine 5 mg Tablet 5 mg PO DAILY 90 Days Qty: 90 0RF Protocol: Hold for SBP< HOLD for SBP < : 90 Continued acetaminophen [Tylenol Extra Strength] 500 mg Tablet 500 mg PO DAILY PRN (Reason: Pain) Discharge Orders: Discharge Order (Routine); Ordered 02/25/24 Ordered By: Nai Matos Activity on Discharge: As tolerated Stand Alone Forms: Patient Portal Discharge page, Work/School Release Print Language: Turkmen Care Plan Goals: See below Health Concerns: Acute pancreatitis Elevated triglyceride levels Elevated blood pressure Plan of Treatment: Recommend lifestyle modification including exercise, Mediterranean diet, alcohol cessation and weight loss to improve lipids and blood pressure take amlodipine for better control of blood pressure recommend obtaining PCP for close monitoring of blood pressure and lipids can go to [facility] pharmacy tomorrow to pickle solution maker medications Assessment: See discharge summary
--- NOTE | 2024-02-25 10:47 | MHC.CM.PN ---
Addendum entered by Maddie Perales 02/25/24 12:24: CM CONTACTED [facility] OOP COST WOULD BE $122 FOR A 90 DAY SUPPLY HOWEVER WITH A [employer] COUPON IT WILL COME DOWN TO $34 CM ATTEMPTED TO BRING COUPON TO PT, HOWEVER HE HAD ALREADY LEFT CM CALLED PTS CELL PHONE AND LEFT A VM WITH THE ABOVE INFORMATION Original Note: PT REPORTS HE HAS STABLE HOUSING HE IS INDEPENDENT WITH CARE, NO SERVICES, NO DME PT HAS NO HEALTH INSURANCE AND NO DME HE DECLINES TO COMPLETE A HCP PT KNOWS HE WILL BE CALLED BY [facility] FOR ASSISTANCE WITH HEALTH INSURANCE HE IS ALSO AWARE HE WILL BE DISCHARGED WITH A PRESCRIPTION HE HAS REQUESTED IT BE SENT TO HIS PHARMACY ON FILE SO COST CAN BE DETERMINED IF HE CANNOT AFFORD IT OUT OF POCKET, HE WILL GO TO THE [facility] TOMORROW FOR ASSISTANCE HE WILL DC HOME TODAY WITH NO SERVICES AUNT TO TRANSPORT
== END 2024-02-25 14:39 | disposition home or self-care (01) | DRG 439 ==
LOC: HO.ED 12:47 → HO.EDOVER 14:12
PROVIDERS: Physician Assistant; Admitting Provider Physician Assistant Medical; Emergency Provider Emergency Medicine; Visit Provider Physician Assistant Medical
DX: K85.20 Alcohol induced acute pancreatitis without necrosis or infection (principal); M62.82 Rhabdomyolysis; F10.20 Alcohol dependence, uncomplicated; Z20.822 Contact with and (suspected) exposure to COVID-19; E66.01 Morbid (severe) obesity due to excess calories; Z68.39 Body mass index [BMI] 39.0-39.9, adult; K76.0 Fatty (change of) liver, not elsewhere classified; Z71.41 Alcohol abuse counseling and surveillance of alcoholic
CPT/HCPCS: 0241U; 36415; 74177; 80048; 80053; 80061; 80307; 82550; 83036; 83690; 85025; 99285; J1650; J7120; Q9967

== ENCOUNTER → 2024-02-23 13:41 | Outpatient (BNV) | payer SELFPAY | PROVIDERS: Admitting Provider Physician Assistant Medical; Emergency Provider Emergency Medicine; Visit Provider Physician Assistant Medical | DX: K85.90 Acute pancreatitis without necrosis or infection, unspecified (principal) | CPT/HCPCS: 99223; 99232; 99239 ==